=== PATIENT | male | born 1935 | race Caucasian/White ===

== ENCOUNTER 2016-09-23 21:04 | Outpatient (CLI) | payer MEDICARE, OTHER | END 2016-09-23 21:05 | disposition critical access hospital (66) | DX: R50.9 Fever, unspecified (principal); R53.83 Other fatigue; R10.9 Unspecified abdominal pain | CPT/HCPCS: A0425; A0429 ==

== ENCOUNTER 2016-09-23 21:10 | Inpatient (IN) | payer MEDICARE, OTHER ==
[2016-09-23] MEDS ORDERED: SODIUM CHLORIDE 0.9% 1,000 ML IV ONE (21:35)
[2016-09-23] MEDS ORDERED: MAGNESIUM CITRATE 296 ML BOTTLE PO STA (23:04)
[2016-09-23] MEDS ORDERED: MAGNESIUM CITRATE 296 ML BOTTLE ONE (23:15)
[2016-09-23] MEDS ORDERED: cefTRIAXone 1 GM in SODIUM CHLORIDE 0.9% MINIBAG 100 ML IV STA (23:20)
[2016-09-23] MEDS ORDERED: cefTRIAXone 1 GM VIAL ONE (23:23)
[2016-09-23] MEDS ORDERED: ONDANSETRON 4 MG/2 ML VIAL IVP PRN (23:45)
[2016-09-23] MEDS ORDERED: SODIUM CHLORIDE FLUSH 0.9% 10 ML SYRINGE IVP PRN (23:45)
[2016-09-23] MEDS ORDERED: ACETAMINOPHEN 325 MG TABLET PO PRN (23:45)
[2016-09-23] MEDS ORDERED: PROCHLORPERAZINE 10 MG/2 ML VIAL IVP PRN (23:45)
[2016-09-23] MEDS ORDERED: oxyCODONE 5 MG TABLET PO PRN (23:45)
[2016-09-23] MEDS ORDERED: GABAPENTIN 300 MG CAPSULE PO SCH (23:45)
[2016-09-24] MEDS: oxyCODONE 5 MG TABLET PO PRN ×2 (00:39→05:19)
[2016-09-24] MEDS: SODIUM CHLORIDE FLUSH 0.9% 10 ML SYRINGE IVP SCH ×3 (00:48→21:52)
[2016-09-24] MEDS: SODIUM CHLORIDE 0.9% 1,000 ML IV SCH ×3 (00:48→21:58)
[2016-09-24] MEDS: PANTOPRAZOLE 40 MG TABLET PO SCH (06:41)
[2016-09-24] MEDS ORDERED: SODIUM POLYSTYRENE SULFONATE 15 GM/60 ML BOTTLE PO ONE ×2 (07:35→09:00)
[2016-09-24] MEDS: GABAPENTIN 300 MG CAPSULE PO SCH ×2 (08:57→21:50)
[2016-09-24] MEDS: LEVOTHYROXINE 25 MCG TABLET PO SCH (08:58)
[2016-09-24] MEDS: INSULIN GLARGINE 300 UNIT/3 ML PEN SUBQ SCH (08:58)
[2016-09-24] MEDS: LOSARTAN 50 MG TABLET PO SCH (08:58)
[2016-09-24] MEDS: INSULIN ASPART 300 UNIT/3 ML PEN SUBQ SCH ×4 (08:58→21:54)
[2016-09-24] MEDS: cefTRIAXone 1 GM in SODIUM CHLORIDE 0.9% MINIBAG 100 ML IV SCH (08:59)
[2016-09-24] MEDS: POLYETHYLENE GLYCOL 3350 17 GM PACKET PO SCH ×2 (09:00→09:19)
[2016-09-24] MEDS: ENOXAPARIN 40 MG/0.4 ML SYRINGE SUBQ SCH (09:17)
[2016-09-24] MEDS: DICLOFENAC EPOLAMINE TOP SCH ×4 (09:18→20:32)
[2016-09-24] MEDS: CRANBERRY FRUIT EXTRACT PO SCH (09:18)
[2016-09-25] MEDS: SODIUM CHLORIDE FLUSH 0.9% 10 ML SYRINGE IVP SCH ×2 (05:32→14:45)
[2016-09-25] MEDS: PANTOPRAZOLE 40 MG TABLET PO SCH (05:54)
[2016-09-25] MEDS: LEVOTHYROXINE 25 MCG TABLET PO SCH (05:54)
[2016-09-25] MEDS: SODIUM CHLORIDE 0.9% 1,000 ML IV SCH (05:55)
[2016-09-25] MEDS ORDERED: ZINC OXIDE 20% OINT 28.35 GM TUBE TOP ONE (08:22)
[2016-09-25] MEDS ORDERED: MIN OIL/DIMETHICON/COCONUT OIL 92 GM TUBE TOP ONE (08:22)
[2016-09-25] MEDS: GABAPENTIN 300 MG CAPSULE PO SCH (09:02)
[2016-09-25] MEDS: ENOXAPARIN 40 MG/0.4 ML SYRINGE SUBQ SCH (09:02)
[2016-09-25] MEDS: cefTRIAXone 1 GM in SODIUM CHLORIDE 0.9% MINIBAG 100 ML IV SCH (09:02)
[2016-09-25] MEDS: INSULIN ASPART 300 UNIT/3 ML PEN SUBQ SCH (09:04)
[2016-09-25] MEDS: INSULIN GLARGINE 300 UNIT/3 ML PEN SUBQ SCH (09:05)
[2016-09-25] MEDS: DICLOFENAC EPOLAMINE TOP SCH ×2 (09:07→11:36)
[2016-09-25] MEDS: LOSARTAN 50 MG TABLET PO SCH (09:07)
[2016-09-25] MEDS: POLYETHYLENE GLYCOL 3350 17 GM PACKET PO SCH (09:07)
[2016-09-25] MEDS: CRANBERRY FRUIT EXTRACT PO SCH (09:17)
[2016-09-25] MEDS: oxyCODONE 5 MG TABLET PO PRN (09:21)
[2016-09-25] MEDS ORDERED: INSULIN ASPART 300 UNIT/3 ML PEN SUBQ SCH (12:00)
== END 2016-09-25 16:40 | DRG 699 ==
DX: T83.511A Infection and inflammatory reaction due to indwelling urethral catheter, initial encounter (principal); N17.9 Acute kidney failure, unspecified; G94 Other disorders of brain in diseases classified elsewhere; E11.9 Type 2 diabetes mellitus without complications; C61 Malignant neoplasm of prostate; C79.9 Secondary malignant neoplasm of unspecified site; R74.0 Nonspecific elevation of levels of transaminase and lactic acid dehydrogenase [LDH]; E87.5 Hyperkalemia; Z79.899 Other long term (current) drug therapy; E11.42 Type 2 diabetes mellitus with diabetic polyneuropathy; E11.65 Type 2 diabetes mellitus with hyperglycemia; E03.9 Hypothyroidism, unspecified; I10 Essential (primary) hypertension; G89.29 Other chronic pain; M54.9 Dorsalgia, unspecified; Z79.01 Long term (current) use of anticoagulants; Z79.4 Long term (current) use of insulin; Z79.891 Long term (current) use of opiate analgesic; Z79.84 Long term (current) use of oral hypoglycemic drugs; Z85.46 Personal history of malignant neoplasm of prostate

== ENCOUNTER 2016-09-25 16:47 | Outpatient (CLI) | payer MEDICARE, OTHER | END 2016-09-25 16:48 | DX: N39.0 Urinary tract infection, site not specified (principal); R41.82 Altered mental status, unspecified; R53.1 Weakness | CPT/HCPCS: A0425; A0428 ==

== ENCOUNTER 2016-09-29 17:30 | Outpatient (CLI) | payer MEDICARE, OTHER | END 2016-09-29 17:31 | disposition home or self-care (01) | DX: N39.0 Urinary tract infection, site not specified (principal); R41.82 Altered mental status, unspecified ==

== ENCOUNTER 2016-10-02 17:57 | Outpatient (CLI) | payer MEDICARE, OTHER | END 2016-10-02 17:58 | disposition short-term general hospital (02) | LOC: EMS 17:57 | PROVIDERS: ATTEND Surgery | DX: R41.82 Altered mental status, unspecified (principal); R50.9 Fever, unspecified | CPT/HCPCS: A0425; A0428 ==